=== PATIENT | male | born 1985 | race Caucasian/White ===

== ENCOUNTER 2023-01-22 17:04 | Emergency (ER) | payer MEDICARE ==
[2023-01-22] MEDS ORDERED: Ketorolac Tromethamine 30 MG/ML VIAL ONE (17:39)
== END 2023-01-22 17:55 | disposition home or self-care (01) ==
LOC: ERS 17:04
DX: K11.5 Sialolithiasis (principal); I10 Essential (primary) hypertension; F17.210 Nicotine dependence, cigarettes, uncomplicated
CPT/HCPCS: 96372; 99283; J1885